=== PATIENT | female | born 1965 | race African-American/Black ===

== ENCOUNTER 2017-10-15 12:04 | Emergency (ER) | payer MEDICAID ==
[~2017-10-15] VITALS: Ht 165.1 cm; Wt 69.0 kg
[~2017-10-15 12:04] MED LIST: FERR325T23
[2017-10-15 12:48] LABS: BASOPHILS % 1.4 % (0.0-2.0); EOSINOPHILS % 11.9 % (0.0-5.0); HEMATOCRIT. 38.6 % (36.0-48.0); LYMPHOCYTES % 33.4 % (20.0-50.0); MEAN CORPUSCULAR HEMOGLOBIN 27.3 pg (28.0-32.0); MEAN CORPUSCULAR VOLUME 81.1 fL (81.0-99.0); NEUTROPHILS % 43.3 % (40.0-76.0); PLATELET 303 x1000/uL (130-400); RED BLOOD CELL COUNT 4.76 mill/uL (4.2-5.4); RED CELL DISTRIBUTION WIDTH 12.7 % (11.6-14.6)
[2017-10-15 12:52] LABS: CHLORIDE 102 mEq/L (98-107)
[2017-10-15] MEDS ORDERED: SODIUM CHLORIDE 0.9% 1,000 ML IV ONE (12:53)
[2017-10-15] MEDS ORDERED: KETOROLAC 30MG/ML VIAL IV ONE (13:00)
[2017-10-15 13:01] LABS: CREATINE KINASE 199 IU/L (26-192)
[2017-10-15 13:03] LABS: CREATINE KINASE MB FRACTION 1.2 ng/mL (0.5-3.6)
[2017-10-15 13:08] LABS: PARTIAL THROMBOPLASTIN TIME 27.1 sec (23.4-31.0); PROTHROMBIN TIME 10.4 sec (9.4-11.6)
[2017-10-15 13:18] LABS: *AMPHETAMINES SCREEN URINE NEGATIVE (NEGATIVE); *BARBITURATES SCREEN URINE NEGATIVE (NEGATIVE); *BENZODIAZEPINES SCREEN URINE NEGATIVE (NEGATIVE); *COCAINE SCREEN URINE NEGATIVE (NEGATIVE); METHADONE URINE SCREEN NEGATIVE (NEGATIVE)
[2017-10-15 13:19] LABS: CANNABINOID URINE SCREEN NEGATIVE (NEGATIVE); OPIATES URINE SCREEN NEGATIVE (NEGATIVE); PHENCYCLIDINE URINE SCREEN NEGATIVE (NEGATIVE)
[2017-10-15 15:39] VITALS: BP 118/70
== END 2017-10-15 16:00 | disposition home or self-care (01) ==
LOC: ER 15:58
DX: R07.9 Chest pain, unspecified (principal); R42 Dizziness and giddiness; D64.9 Anemia, unspecified; E05.90 Thyrotoxicosis, unspecified without thyrotoxic crisis or storm; Z88.5 Allergy status to narcotic agent
CPT/HCPCS: 36415; 71045; 80053; 80305; 82550; 82553; 83690; 84484; 85025; 85610; 85730; 93005; 96361; 96374; 99285; J1885; J7030; Z7610

== ENCOUNTER 2019-06-19 11:49 | Emergency (ER) | payer MEDICAID ==
[~2019-06-19] VITALS: Ht 165.1 cm; Wt 70.0 kg
[2019-06-19] MEDS ORDERED: IBUPROFEN 800MG TABLET PO ONE (15:00)
[2019-06-19 15:27] VITALS: BP 139/85
== END 2019-06-19 15:30 | disposition home or self-care (01) ==
LOC: ER 11:49
DX: J06.9 Acute upper respiratory infection, unspecified (principal)
CPT/HCPCS: 99282

== ENCOUNTER 2020-05-01 17:24 | Emergency (ER) | payer MEDICAID ==
[~2020-05-01] VITALS: Ht 165.1 cm; Wt 70.0 kg
[2020-05-01] MEDS ORDERED: KETOROLAC 60MG/2ML VIAL IM ONE (18:15)
[2020-05-01 19:36] VITALS: BP 137/76
== END 2020-05-01 19:37 | disposition home or self-care (01) ==
LOC: ER 17:24
DX: S13.4XXA Sprain of ligaments of cervical spine, initial encounter (principal); E05.90 Thyrotoxicosis, unspecified without thyrotoxic crisis or storm; D64.9 Anemia, unspecified; Z88.6 Allergy status to analgesic agent; V49.88XA Car occupant (driver) (passenger) injured in other specified transport accidents, initial encounter; Y93.89 Activity, other specified; Y92.89 Other specified places as the place of occurrence of the external cause; Y99.8 Other external cause status
CPT/HCPCS: 72040; 99283

== ENCOUNTER 2021-09-15 09:06 | Emergency (ER) | payer MEDICAID ==
[~2021-09-15] VITALS: Ht 165.1 cm; Wt 70.0 kg
[2021-09-15 09:30] LABS: BASOPHILS % 1.2 % (0.0-2.0); EOSINOPHILS % 9.5 % (0.0-5.0); HEMATOCRIT. 39.2 % (36.0-48.0); HEMOGLOBIN. 12.7 g/dL (12.0-16.0); LYMPHOCYTES % 33.8 % (20.0-50.0); MEAN CORPUSCULAR HEMOGLOBIN 26.5 pg (28.0-32.0); MEAN CORPUSCULAR VOLUME 81.6 fL (81.0-99.0); MEAN PLATELET VOLUME 8.1 fl (7.4-10.4); NEUTROPHILS % 46.5 % (40.0-76.0); PLATELET 286 x1000/uL (130-400); RED CELL DISTRIBUTION WIDTH 13.1 % (11.6-14.6)
[2021-09-15 09:37] LABS: CHLORIDE 106 mEq/L (98-107)
[2021-09-15] MEDS ORDERED: MAGNESIUM/ALUMINUM HYDROXIDE/SIMETHICONE 30ML UDC PO SCH (09:45)
[2021-09-15] MEDS ORDERED: VISCOUS LIDOCAINE 2% 15 ML UDC MM SCH (09:45)
[2021-09-15 10:30] VITALS: BP 106/88
[2021-09-15] MEDS ORDERED: BACL-141 MT (12:24)
[2021-09-15] MEDS ORDERED: ASPI-1497 MT (12:24)
[2021-09-15] MEDS ORDERED: LIDO700A15 TP (12:24)
== END 2021-09-15 12:58 | disposition home or self-care (01) ==
LOC: ER 09:06
DX: R07.89 Other chest pain (principal); M25.511 Pain in right shoulder; I10 Essential (primary) hypertension; D64.9 Anemia, unspecified; Z88.5 Allergy status to narcotic agent
CPT/HCPCS: 36415; 71045; 73030; 80053; 83880; 84484; 85025; 93005; 99285

== ENCOUNTER 2024-01-17 09:26 | Emergency (ER) | payer MEDICAID ==
[~2024-01-17] VITALS: Ht 175.3 cm; Wt 70.0 kg
[~2024-01-17 09:26] MED LIST changes: +ASPI-1497 MT; +BACL-141 MT; +LIDO700A15 TP
[2024-01-17 09:38] VITALS: TEMP 98.8
[2024-01-17 10:27] LABS: HEMATOCRIT. 37.5 % (36.0-48.0); HEMOGLOBIN. 12.1 g/dL (12.0-16.0); MEAN CORPUSCULAR HEMOGLOBIN 26.7 pg (28.0-32.0); MEAN CORPUSCULAR HGB CONC 32.2 g/dL (31.0-37.0); MEAN CORPUSCULAR VOLUME 82.9 fL (81.0-99.0); MEAN PLATELET VOLUME 8.1 fl (7.4-10.4); PLATELET 282 x1000/uL (130-400); RED BLOOD CELL COUNT 4.52 mill/uL (4.2-5.4); WHITE BLOOD COUNT 5.2 x1000/uL (4.5-11.0)
[2024-01-17 10:31] LABS: DIFFERENTIAL COMMENT 1
[2024-01-17 10:32] LABS: CHLORIDE 105 mEq/L (98-107); POTASSIUM 3.5 mEq/L (3.5-5.1); SODIUM 142 mEq/L (136-145)
[2024-01-17 10:33] LABS: CARBON DIOXIDE 30 mEq/L (21-32)
[2024-01-17 10:34] LABS: CALCIUM 9.4 mg/dL (8.7-10.4)
[2024-01-17 10:38] LABS: CREATININE 0.8 mg/dL (0.6-1.0); GLUCOSE 125 mg/dL (70-105); UREA NITROGEN BLOOD 6 mg/dL (9-23)
[2024-01-17 10:45] LABS: TROPONIN I HIGH SENSITIVITY < 4 ng/L (3.0-34)
[2024-01-17 10:50] VITALS: PULSE 66; RESP 24; O2SAT 98
[2024-01-17] MEDS: ASPIRIN 81MG TABLET PO ONE (10:58)
[2024-01-17] MEDS: NITROGLYCERIN OINT 1GM/INCH UDPKT TD ONE (10:59)
[2024-01-17] MEDS: IPRATROPIUM BROMIDE (0.02%) 0.5MG/2.5ML NEB HHN STA (11:13)
[2024-01-17] MEDS: ALBUTEROL (0.083%) 2.5MG/3ML NEB HHN STA (11:14)
[2024-01-17 12:12] LABS: PLATELET ESTIMATE NORMAL
[2024-01-17] MEDS: IOHEXOL-350 100 ML BOTTLE ONE (13:45)
[2024-01-17 14:32] LABS: TROPONIN I HIGH SENSITIVITY < 4 ng/L (3.0-34)
[2024-01-17] MEDS ORDERED: ALBU90AE INH (14:41)
[2024-01-17 15:29] VITALS: BP 155/91; PULSE 80; RESP 16; O2SAT 98
== END 2024-01-17 15:31 | disposition home or self-care (01) ==
LOC: ER 09:26
DX: R07.9 Chest pain, unspecified (principal); J45.909 Unspecified asthma, uncomplicated; D64.9 Anemia, unspecified; E03.9 Hypothyroidism, unspecified; Z98.890 Other specified postprocedural states; Z88.5 Allergy status to narcotic agent; Z20.822 Contact with and (suspected) exposure to COVID-19
CPT/HCPCS: 80048; 83880; 85025; 85379; 84484; 87804 ×2; 36415; 71045; 71275; 94640; 93005; 99285; 87426; Q9967; Z7610 ×5